=== PATIENT | female | born 1990 | race Caucasian/White ===

== ENCOUNTER 2021-11-21 06:21 | Emergency (ER) | payer OTHER ==
[2021-11-21 06:41] VITALS: PULSE 103; TEMP 97.4; BMI 21.9
[2021-11-21] MEDS ORDERED: AMOX TR/POT CLAV 875MG/125MG TABLETS (FP) PO ONE (07:28)
[2021-11-21 07:44] VITALS: BP 113/82
[2021-11-21] MEDS ORDERED: AMOX TR/POT CLAV 875MG/125MG TABLETS (FP) ONE (08:17)
[2021-11-21] MEDS ORDERED: LIDOCAINE HCL 2% JELLY 10 ML CARTRIDGE ONE (09:26)
[2021-11-21] MEDS ORDERED: LIDOCAINE HCL 2% JELLY 10 ML CARTRIDGE PR ONE (09:26)
== END 2021-11-21 10:21 | disposition home or self-care (01) ==
LOC: JER 06:21
DX: S01.81XA Laceration without foreign body of other part of head, initial encounter (principal); W01.0XXA Fall on same level from slipping, tripping and stumbling without subsequent striking against object, initial encounter
CPT/HCPCS: 70160-TC-FY; 99283-25

== ENCOUNTER 2024-04-21 04:18 | Emergency (ER) | payer OTHER ==
[2024-04-21 04:28] VITALS: BP 126/88; PULSE 101; RESP 18; TEMP 97.9; BMI 21.4
[2024-04-21 05:04] LABS: HCG,QUALITATIVE URINE Negative
[2024-04-21 05:34] LABS: EPI CELLS >36 /uL (0-25.1); HYALINE CASTS 28 /uL (0-3.1); PH,URINE 5.5 (5.0-8.0); URINE APPEARANCE TURBID; URINE BACTERIA >9,000 /uL (0-1359); URINE BILIRUBIN 1+ (NEGATIVE); URINE COLOR DK YELLOW; URINE GLUCOSE (UA) NEGATIVE (NEGATIVE); URINE KETONE TRACE (NEGATIVE); URINE LEUK ESTERASE 1+ (NEGATIVE); URINE NITRITE NEGATIVE (NEGATIVE); URINE PROTEIN 1+ (NEGATIVE); URINE RBC 11 /uL (0-23.9); URINE WBC 557 /uL (0-25.8)
[2024-04-21] MEDS ORDERED: CEPHALEXIN MONOHYDRATE 500 MG CAPSULE (UD) ONE (05:51)
[2024-04-21] MEDS ORDERED: valACYclovir HCL 500 MG TABLET (FP) ONE (05:51)
[2024-04-21] MEDS: valACYclovir HCL 500 MG TABLET (FP) PO ONE (05:55)
[2024-04-21] MEDS: CEPHALEXIN MONOHYDRATE 500 MG CAPSULE (UD) PO ONE (05:55)
[2024-04-21 06:14] LABS: HIV INTERPRETATION NEGATIVE (NEGATIVE)
[2024-04-21 08:42] LABS: URINE CRYSTALS PRESENT /hpf
== END 2024-04-21 05:55 | disposition home or self-care (01) ==
LOC: JER 04:18
DX: L29.2 Pruritus vulvae (principal); N39.0 Urinary tract infection, site not specified; A60.04 Herpesviral vulvovaginitis
CPT/HCPCS: 36415; 81003; 84703; 86803; 87086; 87186; 87389; 87491; 87591; 99283-25